=== PATIENT | male | born 1980 | race African-American/Black ===

== ENCOUNTER 2016-11-12 12:07 | Emergency (ER) | payer OTHER ==
[~2016-11-12] VITALS: Ht 198.1 cm; Wt 118.2 kg
[~2016-11-12 12:07] MED LIST: LISI1TAB9 PO; LORA1TAB PO; PRAZ5CAP PO; PREG150C PO; SILD20TA14 PO; SUMA6VIA18 SQ; TOPI50TA32 PO; ZOLP12.52 PO
[2016-11-12 12:24] VITALS: BP 124/74; PULSE 91; RESP 15; O2SAT 100
--- NOTE | 2016-11-12 13:25 | ED.REPORT ---
HPI-Back Pain Under 38 Date of Service Nov 12, 2016 ED Provider: Taylor Macias History of Present Illness: back pain for the last 3 months. given valium percocet no help active duty on leave waiting to check in 12/08/2016 for [employer]. have not tried steroids. right leg pain also. Toradol no help. patient states last took opiate medication 1 week ago. patient with long hx of chronic back pain. Nursing Notes Stated Complaint: BACK PAIN Chief Complaint: Back Pain or Injury Nursing Notes Reviewed: Yes Allergies: Coded Allergies: trazodone (Verified Allergy, Severe, headache, 11/12/16) rizatriptan (Verified Allergy, Unknown, vomiting, 11/12/16) ondansetron (Verified Adverse Reaction, Intermediate, vomiting, 11/12/16) metoclopramide HCl (Verified Adverse Reaction, Unknown, altered mental status, 11/12/16) Scheduled Lisinopril / HCTZ 20-12.5 mg (Lisinopril / HCTZ 20-12.5 mg) 1 Each Tablet 1 EACH PO DAILY Prazosin (Minipress) 5 Mg Capsule 15 MG PO HS Pregabalin (Lyrica) 150 Mg Capsule 150 MG PO BID Sildenafil Citrate (Sildenafil) 20 Mg Tablet 100 MG PO ASDIRECTED Take 100 mg 30 min prior to intercorse. Topiramate (Topamax) 50 Mg Tablet 50 MG PO DAILY Scheduled PRN Lorazepam (Lorazepam) 1 Mg Tablet 0.5-1 MG PO DAILY PRN PRN For Anxiety Sumatriptan Succinate (Sumatriptan Succinate) 6 Mg/0.5 Ml Vial 6 MG SQ BID PRN PRN For Headache Zolpidem ER (Ambien CR) 12.5 Mg Tab.mphase 12.5 MG PO HS PRN PRN For Insomnia Zolpidem ER (Ambien CR) 12.5 Mg Tablet 12.5 MG PO HS PRN PRN For Insomnia Zolpidem ER (Ambien CR) 12.5 Mg Tablet 12.5 MG PO HS PRN PRN For Insomnia General Time Seen by MD: 13:23 Chief Complaint Back pain Hx Obtained From: Patient Sudden in Onset?: No Severity: Current: Pain level 8 out of 10 Past Medical History Past Medical History Chronic back pain sciatica PTSD Reports: Hypertension Past Surgical History Prior back surgery right surgery Smoking History Never Smoker Social History active duty Alcohol Use: Denies alcohol use Drug Use: Denies drug use Occupation will be based in [place] for 3 years 11/12/2016 Ambulatory Status Independent Review of Systems Basic Review of Systems Eyes: Vision NL, No discharge Psychiatric: Normal thought content Physical Exam Initial Vital Signs Vital Signs (First) Date Time Temp Pulse Resp B/P Pulse Ox O2 Delivery O2 Flow Rate FiO2 11/12/16 12:24 36.8 91 15 124/74 100 Room Air Initial VS: Reviewed, Vital signs normal Head / Eyes: Atraumatic, Normocephalic, PERRL ENT: Mucous membranes moist, Conjunctiva normal, No scleral icterus Neck: Supple, Non-tender, Full range of motion Respiratory: Breath sounds normal, Clear to auscultation, No respiratory distress Cardiovascular: Heart sounds normal, Intact distal pulses Abdomen / GI: Soft, Non-tender, No guarding, No rebound, No distention Lymphatic: No lymphadenopathy Extremities: Vascular intact, Neuro intact, No swelling, No tenderness Skin: Warm, Dry, No cyanosis Psychiatric: Mood/affect normal, Behavior normal, Normal thought content General/Constitutional: Awake, Alert, No acute distress, Well appearing, Well developed, Well hydrated, Well nourished, Cooperative, Not toxic appearing Back: Atraumatic, Inspection NL patient with a great deal of pain behavior Neurologic: Oriented X3, Speech NL, No motor deficits walking without difficulty Interpretation & Diagnostics Interpretation & Diagnostics: PROCEDURE: MRI LUMBAR SPINE WITHOUT CONTRAST ([id number]) INDICATIONS: back pain not responding to pain meds TECHNIQUE: Noncontrast sagittal T1 spin echo and T2 fast echo, sagittal STIR, axial T1 and T2 fast spin echo through the lumbar spine. In cases with scoliosis, additional coronal T2 fast spin echo may be performed. COMPARISON: [facility], MR, LUMBAR SPINE W/O CONTRAST, 11/11/2013, 19:17. FINDINGS: Image quality: Diagnostic. Spinal Cord: The imaged portions of the spinal cord are normal in size and signal. The conus medullaris is normal in position. Paraspinous Soft Tissues: No paravertebral masses. Image soft tissues of the abdomen and pelvis are grossly unremarkable; however, not adequately evaluated on this exam. The abdominal aorta is normal in course and caliber. Bones: The vertebral body heights and marrow signal are within normal limits. There is no acute fracture or dislocation. Lower thoracic levels: No significant degenerative changes of the included lower thoracic levels are present. There is no central canal or neural foraminal narrowing at these levels. L1-L2: There is no significant disc bulge or facet arthropathy. There is no central canal or neural foraminal stenosis. L2-L3: There is no significant disc bulge or facet arthropathy. There is no central canal or neural foraminal stenosis. L3-L4: Minimal disc bulge is present at this level without significant disc height loss. No disc protrusion or extrusion is present. No significant facet arthrosis is evident. There is no central canal or neural foraminal narrowing. L4-L5: There is mild diffuse disc bulge with disc desiccation. A central annular fissure appears to be present at this level without disc protrusion or extrusion. Mild facet arthrosis is noted. There is no central canal stenosis. However, there is mild bilateral neural foraminal narrowing. L5-S1: Disc height loss and diffuse disc bulges present at this level. A central disc protrusion is identified with an associated central annular fissure. Mild to moderate facet arthropathy at this level is noted. There is no central canal stenosis. There is mild bilateral neural foraminal narrowing. IMPRESSION: 1. Mild degenerative changes of the lower lumbar spine have slightly progressed in the interim. 2. Small central disc protrusion at L5-S1 without extrusion. No additional protrusions or extrusions are present. 3. Central canal stenosis: None. 4. Neural foraminal stenosis: L4-5 (mild bilateral), L5-S1 (mild to moderate bilateral). Dictated by: Thad Eng M.D. on 11/12/2016 at 15:13 Approved by: Thad Eng M.D. on 11/12/2016 at 15:18 Lab Results Interpretation Test 11/12/16 15:00 Hold Urine Received (Received) Re-Eval/Medical Decision Med Decision/Clinical Course 36 year old male with chronic back pain that does not respond to any medication. Patient was requesting dilaulid in an IV as "that helps" Advised patient opiates are not the drug of choice for ongoing chronic pain. Discussed can increase his gapabentin, can start duloxetine. Patient reports the nerve ablation that they did at [facility] 2 years ago was helpful. Advised patient that if the medication does not work, it does not make sense to continue to increase it. He then states he needs to take much more than prescribed because that is what his body needs. No sign of infection, spinal mass or fracture. Discharge & Departure Impression: Primary Impression: Low back pain Chronicity: chronic Back pain laterality: right Sciatica presence: with sciatica Additional Impression: Chronic pain Disposition: Home Patient Instructions: Lumbar Radiculopathy (ED), Low Back Strain (ED), Sciatica (ED) Additional Instructions: The MRI does not provide any answers. You can increase your gabapentin to a max of 3600. You are also being provided a prescription for duloxetine. This is a medication that helps with chronic pain. You are also being provided a prescription for prednisone. 60 mg daily for 3 days the 40 mg daily for 3 days then 20mg daily for 3 days then 5 mg daily for 3 days. Please check in at the [facility] tomorrow to see if you can get a referral for the nerve abalation which was done at [facility] and was helpful. Opiates are not indicated for chronic ongoing pain. Your primary care provider may decide they are indicated but the ER does not address ongoing pain. I am sorry you are having this discomfort. Referrals: NOPCP (PCP) [facility] EDSupervising Provider for APC: Miguel Arriola MD copies to: [facility] Taylor Macias Nov 12, 2016 13:25
[2016-11-12] MEDS ORDERED: HYDROmorphone 1 mg/mL Inj IM ONE (13:35)
[2016-11-12] MEDS ORDERED: Dexamethasone 20 mg/2 mL Oral Solution PO ONE (13:35)
[2016-11-12] MEDS ORDERED: LORazepam 2 mg Tablet PO ONE (15:40)
--- NOTE | 2016-11-12 16:19 | DRSVH ---
PROCEDURE: MRI LUMBAR SPINE WITHOUT CONTRAST ([id number]) INDICATIONS: back pain not responding to pain meds TECHNIQUE: Noncontrast sagittal T1 spin echo and T2 fast echo, sagittal STIR, axial T1 and T2 fast spin echo thr ough the lumbar spine. In cases with scoliosis, additional coronal T2 fast spin echo may be performe d. COMPARISON: [facility], MR, LUMBAR SPINE W/O CONTRAST, 11/11/2013, 19:17. FINDINGS: Image quality: Diagnostic. Spinal Cord: The imaged portions of the spinal cord are normal in size and signal. The conus medulla ris is normal in position. Paraspinous Soft Tissues: No paravertebral masses. Image soft tissues of the abdomen and pelvis are grossly unremarkable; however, not adequately evaluated on this exam. The abdominal aorta is normal in course and caliber. Bones: The vertebral body heights and marrow signal are within normal limits. There is no acute frac ture or dislocation. Lower thoracic levels: No significant degenerative changes of the included lower thoracic levels are present. There is no central canal or neural foraminal narrowing at these levels. L1-L2: There is no significant disc bulge or facet arthropathy. There is no central canal or neural foraminal stenosis. L2-L3: There is no significant disc bulge or facet arthropathy. There is no central canal or neural foraminal stenosis. L3-L4: Minimal disc bulge is present at this level without significant disc height loss. No disc pro trusion or extrusion is present. No significant facet arthrosis is evident. There is no central can al or neural foraminal narrowing. L4-L5: There is mild diffuse disc bulge with disc desiccation. A central annular fissure appears to be present at this level without disc protrusion or extrusion. Mild facet arthrosis is noted. There is no central canal stenosis. However, there is mild bilateral neural foraminal narrowing. L5-S1: Disc height loss and diffuse disc bulges present at this level. A central disc protrusion is identified with an associated central annular fissure. Mild to moderate facet arthropathy at this le dionna is noted. There is no central canal stenosis. There is mild bilateral neural foraminal narrowin g. IMPRESSION: 1. Mild degenerative changes of the lower lumbar spine have slightly progressed in the interim. 2. Small central disc protrusion at L5-S1 without extrusion. No additional protrusions or extrusion s are present. 3. Central canal stenosis: None. 4. Neural foraminal stenosis: L4-5 (mild bilateral), L5-S1 (mild to moderate bilateral). Dictated by: Thad Eng M.D. on 11/12/2016 at 15:13 Approved by: Thad Eng M.D. on 11/12/2016 at 15:18
[2016-11-12 17:22] VITALS: BP 134/85; PULSE 81; RESP 16; O2SAT 98
== END 2016-11-12 17:23 | disposition home or self-care (01) ==
LOC: SED 12:07
DX: M54.5 Low back pain (principal); G89.29 Other chronic pain; I10 Essential (primary) hypertension; Z88.8 Allergy status to other drugs, medicaments and biological substances
CPT/HCPCS: 72148; 96372; 99284; J1170

== ENCOUNTER 2017-01-11 08:13 | Emergency (ER) | payer OTHER ==
[~2017-01-11] VITALS: Ht 193 cm; Wt 103.2 kg
[2017-01-11 08:20] VITALS: BP 138/75; PULSE 97; RESP 20; O2SAT 99
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
[2017-01-11] MEDS ORDERED: Dexamethasone 10 mg/mL Inj IM ONE (10:00)
[2017-01-11] MEDS ORDERED: HYDROmorphone 0.5 mg/0.5 mL iSecure Syringe IM ONE (10:00)
[2017-01-11 11:11] VITALS: BP 13/78; PULSE 65; RESP 12
== END 2017-01-11 11:12 | disposition home or self-care (01) ==
LOC: SED 08:13
DX: M54.41 Lumbago with sciatica, right side (principal); I10 Essential (primary) hypertension; Z98.890 Other specified postprocedural states; Z88.8 Allergy status to other drugs, medicaments and biological substances
CPT/HCPCS: 96372; 99283; J1100; J1170